=== PATIENT | female | born 1970 | race Caucasian/White ===

== ENCOUNTER → 2018-09-27 | Outpatient (CLI) | payer BC ==
--- NOTE | 2018-09-27 08:53 | RAD ---
DATE: 09/27/2018 EXAM: MAMMO [facility] SCREENING BILATERAL HISTORY: Routine screening COMPARISON: Baseline study This study was interpreted with the benefit of Computerized Aided Detection (CAD). Breast Density: SCATTERED The breast parenchyma shows scattered fibroglandular densities. Breast parenchyma level B. FINDINGS: No suspicious breast densities or architectural distortion is seen. There is a benign appearing lymph node type density projected over the axillary tail region of the left breast. Minimal benign type calcification is present. No suspicious microcalcifications are evident. IMPRESSION: There is no mammographic evidence of malignancy in either breast. BI-RADS CATEGORY: 2 BENIGN FINDING(S) RECOMMENDED FOLLOW-UP: 12M 12 MONTH FOLLOW-UP PQRS compliance statement: Patient information was entered into a reminder system with a target due date for the next mammogram. Mammography is a sensitive method for finding small breast cancers, but it does not detect them all and is not a substitute for careful clinical examination. A negative mammogram does not negate a clinically suspicious finding and should not result in delay in biopsying a clinically suspicious abnormality. "Our facility is accredited by the [employer] Mammography Program."
== END | disposition home or self-care (01) ==
LOC: MAMMO 07:54
PROVIDERS: ATTEND Physician Assistant Medical
DX: Z12.31 Encounter for screening mammogram for malignant neoplasm of breast (principal); N64.89 Other specified disorders of breast
CPT/HCPCS: 77063; 77067

== ENCOUNTER → 2020-10-05 | Outpatient (CLI) | payer BC ==
--- NOTE | 2020-10-05 17:08 | RAD ---
MG BILAT SCREEN+MOIRA 10/05/2020 1:05 PM INDICATION: Asymptomatic screening mammogram. COMPARISON: 09/27/2018 TECHNIQUE: 3D tomosynthesis was performed in CC and MLO projections. 2D views were obtained from the 3D data. CAD was utilized as needed. FINDINGS: Breast density: Category B: There are scattered areas of fibroglandular density. Right breast: There are no suspicious microcalcifications, masses or areas of architectural distortio n. Left breast: There are no suspicious microcalcifications, masses or areas of architectural distortion . Bilateral mammogram is compared to prior examinations appears unchanged. IMPRESSION: Negative bilateral mammogram. BI-RADS category: 1; Negative Recommendations: Recommend annual screening mammography in one year. Electronically signed by: Rachel Mixon MD (10/05/2020 5:06 PM) [email or web address]
== END ==
LOC: MAMMO 12:47
PROVIDERS: ATTEND Physician Assistant Medical
DX: Z12.31 Encounter for screening mammogram for malignant neoplasm of breast (principal)
CPT/HCPCS: 77063; 77067

== ENCOUNTER → 2021-03-28 | Outpatient (CLI) | payer BC ==
--- NOTE | 2021-03-28 12:20 | RAD ---
EXAM: Lumbar spine, 5 views. HISTORY: Pain. COMPARISON: None. FINDINGS: 5 views of the lumbar spine are obtained. There is minimal lumbar levocurvature. There is 2 mm grade 1 anterolisthesis of L4 on L5. There is degenerative endplate remodeling and disc space jude rowing predominantly at this level. There is facet arthropathy at the mid lower lumbar levels. There are few endplate Schmorl's nodes. IMPRESSION: 1. Multilevel degenerative change, primarily at L4-L5. 2. No acute osseous finding. Electronically signed by: Daisy Ni MD (03/28/2021 12:17 PM) [email or web address]
--- NOTE | 2021-03-28 12:23 | RAD ---
EXAM: Pelvis and bilateral hips, 3 views. HISTORY: Pain. COMPARISON: None. FINDINGS: A frontal view of the pelvis and frog-leg views of both hips are obtained. There is no frac ture, dislocation or subluxation. The femoral heads are normal in configuration. There is a sclerotic lesion within the left iliac bone measuring 1.9 cm. IMPRESSION: 1. No acute osseous finding. 2. Sclerotic lesion within the left iliac bone. In the absence of known malignancy, this is likely a bone island. Electronically signed by: Daisy Ni MD (03/28/2021 12:21 PM) [email or web address]
== END ==
LOC: RAD 09:04
PROVIDERS: ATTEND Physician Assistant Medical
DX: M47.26 Other spondylosis with radiculopathy, lumbar region (principal); M48.061 Spinal stenosis, lumbar region without neurogenic claudication; M43.16 Spondylolisthesis, lumbar region; M51.46 Schmorl's nodes, lumbar region; M89.9 Disorder of bone, unspecified
CPT/HCPCS: 72110; 73521